=== PATIENT | male | born 1970 | race Caucasian/White ===

== ENCOUNTER 2017-05-05 19:34 | Emergency (ER) | payer MEDICAID ==
--- NOTE | 2017-05-05 23:20 | ED Physician Chart ---
ED Chief Complaint/HPI - Patient Information Date Seen:: 05/05/17 Time Seen:: 22:45 Chief Complaint:: hypertension History of Present Illness:: location: general quality; hypertension severity: mild,mod duration; since 2012. context: pt says he has had high blood pressure since 2012. and has been to several doctors for management of his blood pressure. says he currently sees a [place] physician in [place] for his blood pressure and has been prescribed 7 medications which he takes religiously, also states that he has plenty of each medication, has not run out. pt says he has 3 blood pressure medication machines at home and uses them frequently and sometimes repeatedly to check his blood pressure. on occasion blood pressure will rise. says this occasional elevated blood pressure will happen every few days especially when he uses the blood pressure machines repeatedly at the same time. this evening says he took his evening medications and then noted an elevated blood pressure. decided to come to the ER with his for both of them to be seen. pt reports no chest pain and no shortness of breath. no headache. mod factors: none assoc s/s: none hx from pt. Allergies:: Allergies Allergy/AdvReac Type Severity Reaction Status Date / Time No Known Allergies Allergy Verified 05/05/17 20:17 Vitals:: Vital Signs - 8 hr 05/05/17 05/05/17 19:35 21:36 Temp 98.2 F HR 88 66 RR 18 18 BP 203/104 186/95 O2 Sat % 97 96 Historian:: Patient Review:: Nurse's Note Reviewed ED Review of Systems - Review of Systems General/Constitutional: No fever, No chills, No weight loss, No weakness, No diaphoresis, No edema, No loss of appetite Skin: No skin lesions, No rash, No bruising Head: No headache, No light-headedness Eyes: No loss of vision, No pain, No diplopia ENT: No earache, No nasal drainage, No sore throat, No tinnitus Neck: No neck pain, No swelling, No thyromegaly, No stiffness, No mass noted Cardio Vascular: No chest pain, No palpitations, No PND, No orthopnea, No edema Pulmonary: No SOB, No cough, No sputum, No wheezing GI: No nausea, No vomiting, No diarrhea, No pain, No melena, No hematochezia, No constipation, No hematemesis G/U: No dysuria, No frequency, No hematuria Musculoskeletal: No bone or joint pain, No back pain, No muscle pain Endocrine: No polyuria, No polydipsia Psychiatric: No prior psych history, No depression, No anxiety, No suicidal ideation Hematopoietic: No bruising, No lymphadenopathy Allergic/Immuno: No urticaria, No angioedema Neurological: No syncope, No focal symptoms, No weakness, No paresthesia, No headache, No seizure, No dizziness, No confusion, No vertigo ED Past Medical History - Past Medical History Past Medical History: HTN, CAD, CHF Family History: None Social History: Smoker, Alcohol, No Drug Use, Surgical History: None Psychiatricy History: None Medication: Reviewed (pt says he takes 7 medications and has the list at home. ) Family Medical History - Family Member Mother History Unknown: Yes ED Physical Exam - Physical Examination General/Constitutional: Awake, Well-developed, well-nourished, Alert, No distress, GCS 15, Non-toxic appearing, Ambulatory Head: Atraumatic Eyes: Lids, conjuctiva normal, PERRL, EOMI Skin: Nl inspection, No rash, No skin lesions, No ecchymosis, Well hydrated, No lymphadenopathy ENMT: External ears, nose nl, Nasal exam nl, Lips, teeth, gums nl Neck: Nontender Respiratory: Nl effort/Exclusion, Clear to Auscultation, No Wheeze/Rhonchi/Rales Cardio Vascular: RRR, No murmur, gallop, rubs, NL S1 S2 GI: No tenderness/rebounding/guarding, Normal BS's : No CVA tenderness Extremities: No tenderness or effusion, normal strength in all extremities Neuro/Psych: Alert/oriented, DTR's symmetric, Normal sensory exam, Normal motor strength, Judgement/insight normal, Mood normal, Normal gait, No focal deficits Misc: Normal back, No paraspinal tenderness ED Assessment - Assessment General Assessment: pt stable while in ER. blood pressure improved spontaneously. per patient history he took his evening medications immediately before coming to the hospital. ED Septic Shock - . Is Septic Shock (SBP<90, OR Lactate>4 mmol\L) present?: No - <6hrs of presentation: Vital Signs: Vital Signs - 8 hr 05/05/17 05/05/17 19:35 21:36 Temp 98.2 F HR 88 66 RR 18 18 BP 203/104 186/95 O2 Sat % 97 96 ED Reassessment (Disposition) - Reassessment Reassessment:: medical decision making: pt in stable condition whiel in ER. no chest pain, no shortness of breath, no dizziness reported during physician exam. pt also states he just took his blood pressure medications prior to coming to the ER. it seems quite plausible that the patient's blood pressure improved during his ER stay as a result of hte blood pressure meds he took prior to coming to the ER. no acute complaint during physician exam. pt is informed that he needs to be seen in clinic for recheck tomorrow and he should address blood pressure maintenance with his primary care physician. Reassessment Condition:: Improved - Diagnosis Diagnosis:: hypertension, improved - Aftercare/Follow up Instructions Aftercare/Follow-Up Instructions:: Refer to Discharge Instructions - Patient Disposition Discharge/Transfer:: Home Condition at Disposition:: Stable, Improved
== END 2017-05-05 23:36 | disposition home or self-care (01) ==
LOC: ER 19:34
DX: I10 Essential (primary) hypertension (principal); I25.10 Atherosclerotic heart disease of native coronary artery without angina pectoris; F17.200 Nicotine dependence, unspecified, uncomplicated; Z86.79 Personal history of other diseases of the circulatory system
CPT/HCPCS: Z7502